=== PATIENT | female | born 1975 | race American Indian/Alaskan Native ===

== ENCOUNTER 2017-02-03 08:59 | Outpatient (CLI) | payer OTHER ==
--- NOTE | 2017-02-03 13:36 | Mammography Report ---
BILATERAL DIGITAL SCREENING MAMMOGRAM with CAD: 02/03/17 08:59:00 CLINICAL: Routine screening. COMPARISON:10/19/15 and 09/25/14 FINDINGS: The breasts are heterogeneously dense, which may obscure small masses. A right inner asymmetry on the CC view requires additional imaging.No architectural distortion or suspicious calcifications.The left breast is negative. IMPRESSION: Right asymmetry requiring further workup. BI-RADS CATEGORY: 0 -- Additional Imaging Evaluation Required RECOMMENDATION: Recall for right lateralmedial and spot compression CC views and right breast ultrasound if needed. ACR BI-RADS MAMMOGRAPHIC CODES: 0 = Needs additional imaging evaluation; 1 = Negative; 2 = Benign; 3 = Probably benign; 4 = Suspicious; 5 = Malignant; 6 = Known biopsy-proven malignancy COMMENT: 1. Dense breast tissue, i.e., adenosis, fibrocystic changes, etc., may obscure an underlying neoplasm. 2. Approximately 10% of cancers are not detected with mammography. 3. A negative mammography report should not delay biopsy if a clinically suspicious mass is present. COMMENT: Patient follow-up letters are generated via our [employer] application.
== END 2017-02-03 09:00 | disposition home or self-care (01) ==
LOC: SPVWC 08:59
PROVIDERS: ATTEND Family Medicine
DX: Z12.31 Encounter for screening mammogram for malignant neoplasm of breast (principal)
CPT/HCPCS: 77067; G0202

== ENCOUNTER 2018-11-30 14:35 | Outpatient (CLI) | payer BC ==
--- NOTE | 2018-11-30 15:46 | Mammography Report ---
BILATERAL DIGITAL DIAGNOSTIC MAMMOGRAM with CAD: 11/30/18 14:35:00 CLINICAL: Followup right asymmetry and routine screening of the left breast. She did not return for additional imaging of the right breast after her last screening mammogram. COMPARISON:02/03/17 and 10/19/15 FINDINGS: The breasts are heterogeneously dense, which may obscure small masses.No mass, architectural distortion or suspicious calcifications. The previously identified right inner asymmetry is much less prominent than on the prior mammogram. IMPRESSION: No mammographic evidence of malignancy. BI-RADS CATEGORY: 1 - - Negative RECOMMENDATION: Routine mammographic screening in one year. COMMENT: 1. Dense breast tissue, i.e., adenosis, fibrocystic changes, etc., may obscure an underlying neoplasm. 2. Approximately 10% of cancers are not detected with mammography. 3. A negative mammography report should not delay biopsy if a clinically suspicious mass is present. COMMENT: Patient follow-up letters are generated by our [employer] application.
== END 2018-11-30 14:36 | disposition home or self-care (01) ==
LOC: SPVWC 14:35
PROVIDERS: ATTEND Family Medicine
DX: R92.8 Other abnormal and inconclusive findings on diagnostic imaging of breast (principal); Z87.898 Personal history of other specified conditions
CPT/HCPCS: 77066

== ENCOUNTER 2019-07-11 12:03 | Outpatient (CLI) | payer OTHER | END 2019-07-11 12:04 | disposition home or self-care (01) | LOC: PF 12:03 | PROVIDERS: ATTEND Internal Medicine | DX: J45.909 Unspecified asthma, uncomplicated (principal) | CPT/HCPCS: 94010; 94729 ==

== ENCOUNTER 2020-12-05 15:20 | Outpatient (CLI) | payer BC ==
--- NOTE | 2020-12-05 16:31 | Mammography Report ---
DIGITAL SCREENING MAMMOGRAM WITH CAD, 12/05/2020 CLINICAL INFORMATION / INDICATION: Routine screening mammography. SCREENING MAMMO TECHNIQUE: Digital bilateral 2D mammography was obtained in the craniocaudal and mediolateral obliqu e projections. This examination was interpreted with the benefit of Computer-Aided Detection analysis . COMPARISON: 11/16/19. FINDINGS: Breast Density: There are scattered areas of fibroglandular density. No dominant mass, suspicious calcifications, or architectural distortion in either breast. The previously described focal asymmetric density/distortion in the right upper outer quadrant is no longer present. No new abnormality is seen. IMPRESSION: No mammographic evidence of malignancy. Follow up recommendation: Routine yearly BI-RADS Category 1: Negative. A "normal" or negative report should not discourage follow up or biopsy of a clinically significant f inding. A written summary of these findings will be mailed to the patient. The patient will be entered into a mammography reporting system which will generate a reminder letter for the patient's next appointmen t at the appropriate interval. The [employer] recommends yearly mammograms starting at age 40 and continuing as l jay as a woman is in good health. Breast MRI is recommended for women with an approximate 20-25% or greater lifetime risk of breast cancer, including women with a strong family history of breast or ova ahsan cancer or who have been treated for Hodgkin's disease. Signer Name: Stuart Salvador MD Signed: 12/05/2020 4:26 PM Workstation Name: [id number]
== END 2020-12-05 15:21 | disposition home or self-care (01) ==
LOC: SPVWC 15:20
PROVIDERS: ATTEND Family Medicine
DX: Z12.31 Encounter for screening mammogram for malignant neoplasm of breast (principal); N64.89 Other specified disorders of breast; Z87.898 Personal history of other specified conditions
CPT/HCPCS: 77067